=== PATIENT | female | born 1975 | race African-American/Black ===

== ENCOUNTER 2019-07-08 11:51 | Outpatient (CLI) | payer OTHER ==
--- NOTE | 2019-07-08 18:14 | RAD ---
RIGHT FOOT THREE VIEWS: 07/08/19 No fracture or periosteal reaction was seen. No bony destructive lesion was apparent. A large calcane al spur was seen. There is some degenerative changes in some of the tarsometatarsal joints. IMPRESSION: Chronic changes but no acute findings. POS: HOME
--- NOTE | 2019-07-08 18:15 | RAD ---
LEFT HIP TWO VIEWS: 07/08/19 No fracture was seen. The joint space is normal in width and there are no particular arthritic change s of concern. The adjacent pubic ring appears normal. IMPRESSION: No acute findings. POS: HOME
== END 2019-07-08 11:52 | disposition home or self-care (01) ==
LOC: BURRAD 11:51
PROVIDERS: ATTEND Family Medicine
DX: M25.552 Pain in left hip (principal); M79.671 Pain in right foot

== ENCOUNTER 2019-07-30 08:37 | Outpatient (CLI) | payer OTHER ==
--- NOTE | 2019-07-30 12:07 | RAD ---
LUMBAR SPINE 5 VIEWS: DATE: 07/30/2019. FINDINGS: No fracture or disk space narrowing was seen. There are some very tiny osteophytes beginning to form at most vertebral levels, but they are very minor and are no more than expected for age. If any dis k space could be questioned, it would be L5-S1 in terms of height. No bony anomalies are seen. The SI joints appear normal. IMPRESSION: No acute findings. I would consider the possibility of an MRI if a true radiculopathy is present. POS: HOME
[2019-07-30 17:04] LABS: #Eosinphils 0.1 thou/uL (0.0-0.7); #Lymphocytes 1.8 thou/uL (1.20-3.40); #Monocytes 0.3 thou/uL (0.11-0.59); #Neutrophils 1.8 thou/uL (1.40-6.50); %Basophils 0.6 % (0.0-1.0); %Eosinophils 1.9 % (0.0-10.0); %Neutrophils 45.6 % (42.0-75.0); Mean Corpuscular HGB CONC 33.8 g/dL (32.0-36.0); Mean Corpuscular Hemoglobin 32.1 pg (27.0-31.0); Mean Corpuscular Volume 94.8 fL (78.0-98.0); Mean Platelet Volume 8.5 fL (7.4-10.4); Platelet Count 185 thou/uL (130-400); RBC Distribution Width 12.3 % (11.5-14.5); Red Blood Cell (RBC) Count 4.67 mill/uL (4.20-5.40)
[2019-07-30 17:49] LABS: Free T4 (Free Thyroxine) 0.91 ng/dL (0.70-1.48); Thyroid Stimulating Hormone 0.8081 uIU/mL (0.35-4.94)
[2019-07-30 18:03] LABS: ALT (SGPT) 24 U/L (8-55); AST (SGOT) 32 U/L (5-34); Albumin 4.7 g/dL (3.5-5.0); Alkaline Phosphatase 101 U/L (40-110); Anion Gap 16 mmol/L (10-20); BUN (Urea Nitrogen) 8 mg/dL (7.0-18.7); Bilirubin, Total 0.4 mg/dL (0.2-1.2); CRP (Inflammatory) 0.52 mg/dL (= or < 0.5); Calc. Creatinine Clearance 0 mL/min (70-130); Calcium 9.6 mg/dL (7.8-10.44); Carbon Dioxide 22 mmol/L (22-29); Chloride 105 mmol/L (98-107); Estimated GFR-MDRD Greater than 90; Globulin 3.3 g/dL (2.4-3.5); Glucose 75 mg/dL (70-105); Potassium 3.9 mmol/L (3.5-5.1); Sodium 139 mmol/L (136-145)
[2019-07-31 12:43] LABS: Ref Lab Test Ordered ANA RFLX TITER; Reference Lab Name LABCORP
[2019-07-31 14:52] LABS: Reference Lab Name LABCORP
[2019-07-31 14:53] LABS: Ref Lab Test Ordered RF QUANT
[2019-08-01 17:18] LABS: ANA Symphony (Qualitative) Negative (Negative); ANA Symphony (Quantitative) 0.1 Ratio (< 0.7 Negative); CCP IgG Antibody Less than 0.4 EliAU/mL (<7 Negative); EliA RAS New Method **** NEW METHOD ****; EliA Vaculitis New Method **** NEW METHOD ****; RNP70 IgG Antibody Less than 0.3 EliAU/mL (<7 Negative); SSA/Ro IgG Antibody Less than 0.3 EliAU/mL (<7 Negative); SSB/La IgG Antibody Less than 0.3 EliAU/mL (<7 Negative); Smith D IgG Antibody 1.3 EliAU/mL (<7 Negative); dsDNA IgG Antibody Less than 0.5 IU/mL (<10 Negative)
== END 2019-07-30 08:38 | disposition home or self-care (01) ==
LOC: BURRAD 08:37
PROVIDERS: ATTEND Internal Medicine Rheumatology
DX: M54.32 Sciatica, left side (principal); M54.5 Low back pain; M25.50 Pain in unspecified joint
CPT/HCPCS: 36415; 72110; 80053; 83516; 84165; 84439; 84443; 84550; 85025; 85652; 86038; 86140; 86200; 86225; 86235; 86256

== ENCOUNTER 2022-05-29 08:06 | Outpatient (CLI) | payer BC | END 2022-05-29 08:07 | disposition home or self-care (01) | LOC: BURRAD 08:06 | PROVIDERS: ATTEND Family Medicine | DX: M25.511 Pain in right shoulder (principal) ==

== ENCOUNTER 2022-11-15 15:22 | Emergency (ER) | payer BC ==
[2022-11-15] MEDS ORDERED: Lidocaine 2% w/Epinephrine 1:200K 20 ML VIAL ONE (16:15)
== END 2022-11-15 16:34 | disposition home or self-care (01) ==
LOC: BURERS 15:22
DX: L02.412 Cutaneous abscess of left axilla (principal); F17.210 Nicotine dependence, cigarettes, uncomplicated
CPT/HCPCS: 10060

== ENCOUNTER 2024-09-19 00:49 | Emergency (ER) | payer BC ==
[2024-09-19 02:01] LABS: Hematocrit 43.6 % (36.0-47.0); Hemoglobin 14.7 g/dL (12.0-16.0); Mean Corpuscular HGB CONC 33.8 g/dL (32.0-36.0); Mean Corpuscular Hemoglobin 34.9 pg (27.0-31.0); Mean Platelet Volume 7.8 fL (7.4-10.4); Platelet Count 166 10x3/uL (130-400); RBC Distribution Width 12.3 % (11.5-14.5); Red Blood Cell (RBC) Count 4.22 mill/uL (4.20-5.40); White Blood Cell (WBC) Count 4.6 10x3/uL (4.8-10.8)
[2024-09-19 02:03] LABS: ALT (SGPT) 43 U/L (8-55); AST (SGOT) 42 U/L (5-34); Albumin 3.5 g/dL (3.5-5.0); Alkaline Phosphatase 100 U/L (40-110); Anion Gap 15 mmol/L (10-20); BUN (Urea Nitrogen) 5 mg/dL (9.8-20.1); Bilirubin, Total 0.7 mg/dL (0.2-1.2); Calcium 9.2 mg/dL (7.8-10.44); Carbon Dioxide 25 mmol/L (22-29); Chloride 102 mmol/L (98-107); Globulin 2.5 g/dL (2.4-3.5); Glucose 92 mg/dL (70-105); Lipase 175 U/L (8-78); Sodium 138 mmol/L (136-145)
[2024-09-19 02:24] LABS: Calc. Creatinine Clearance 0 mL/min (70-130); Estimated GFR 105
[2024-09-19] MEDS ORDERED: Morphine 2 MG/ML VIAL ONE (02:24)
[2024-09-19] MEDS ORDERED: Morphine 4 MG/ML VIAL ONE (02:24)
[2024-09-19] MEDS ORDERED: Ondansetron PF 4 MG/2 ML Vial ONE (02:25)
[2024-09-19 02:52] LABS: BHCG - Serum Negative (NEGATIVE); Pregs Control Background? CLEAR/WHITE (CLR/WHITE); Pregs Control Bar Appear? YES (CONTROL BAR)
[2024-09-19 05:58] LABS: #Basophils 0.1 thou/uL (0.0-0.2); #Eosinophils 0.1 thou/uL (0.0-0.7); #Lymphocytes 2.1 thou/uL (1.20-3.40); #Monocytes 0.2 thou/uL (0.11-0.59); #Neutrophils 2.2 thou/uL (1.40-6.50); %Basophils 1.9 % (0.0-1.0); %Eosinophils 1.8 % (0.0-10.0); %Lymphocytes 44.2 % (21.0-51.0); %Monocytes 5.2 % (0.0-10.0)
[2024-09-19 06:12] LABS: Acetaminophen Less than 10 mcg/mL (Less than 10); Alcohol 74.3 mg/dL (Less than 10); Salicylate Less than 8.0 mg/dL (Less than 8.0)
[2024-09-19] MEDS ORDERED: Iopamidol 370 76% 100 ML VIAL ONE (12:42)
== END 2024-09-19 07:09 | disposition short-term general hospital (02) ==
LOC: BURERS 00:49
DX: K85.90 Acute pancreatitis without necrosis or infection, unspecified (principal); F17.210 Nicotine dependence, cigarettes, uncomplicated
CPT/HCPCS: 71045; 74177; 80053; 80307; 83690; 84703; 85025; 93005; 96374; 96375; J2272; J2405; Q9967